=== PATIENT | female | born 1965 ===

== ENCOUNTER 2019-09-28 12:00 | Outpatient (CLI) | payer OTHER | END 2019-09-28 12:06 | disposition home or self-care (01) | LOC: SONOGRAMA 12:00 | DX: D24.1 Benign neoplasm of right breast (principal); N63.11 Unspecified lump in the right breast, upper outer quadrant; N60.11 Diffuse cystic mastopathy of right breast; N60.12 Diffuse cystic mastopathy of left breast ==